=== PATIENT | female | born 1980 | race Caucasian/White ===

== ENCOUNTER 2017-12-26 09:36 | Emergency (ER) | payer OTHER ==
[2017-12-26] MEDS: METOCLOPRAMIDE 10 MG INJ IV (10:34)
[2017-12-26] MEDS: SOD CHLORIDE 0.9% 1,000 ML IV (10:34)
[2017-12-26] MEDS: DIPHENHYDRAMINE 50 MG INJ IV (10:34)
[2017-12-26 10:52] LABS: ADD MAN DIFF? NO
[2017-12-26 10:53] LABS: BASOPHILS % 0.2 % (0.0-2.0); EOSINOPHILS # 0.1 10^3/ul (0.0-0.5); EOSINOPHILS % 0.8 % (0.0-7.0); HEMATOCRIT 40.8 % (37.0-47.0); HEMOGLOBIN 12.8 g/dl (12.0-16.0); LYMPHOCYTES # 1.2 10^3/ul (0.8-2.9); LYMPHOCYTES % 10.2 % (15.0-51.0); MEAN CORPUSCULAR HGB CONC 31.4 g/dl (32.0-37.0); MEAN CORPUSCULAR VOLUME 92.5 fl (82.0-101.0); MEAN PLATELET VOLUME 9.9 fl (7.4-10.4); MONOCYTE # 0.7 10^3/ul (0.3-0.9); MONOCYTES % 6.1 % (0.0-11.0); NEUTROPHIL # 9.4 10^3/ul (1.6-7.5); NEUTROPHILS % 82.4 % (39.0-77.0); PLATELET COUNT 277 10^3/UL (140-415); RED BLOOD COUNT 4.41 10^6/ul (4.20-5.40); RED CELL DISTRIBUTION WIDTH 13.8 % (11.5-14.5)
[2017-12-26 10:53] LABS: WHITE BLOOD COUNT 11.5 10^3/ul (4.8-10.8)
[2017-12-26 11:12] LABS: ANION GAP 13 (8-16); BLOOD UREA NITROGEN 7 mg/dl (7-20); CALCIUM 9.4 mg/dl (8.4-10.2); CARBON DIOXIDE 28 mmol/L (21-31); CHLORIDE 104 mmol/L (97-110); CREATININE 0.47 mg/dl (0.44-1.00); GLUCOSE 100 mg/dl (70-220); POTASSIUM 4.2 mmol/L (3.5-5.1); SODIUM 141 mmol/L (135-144)
== END 2017-12-26 15:08 | disposition home or self-care (01) ==
LOC: E/R 09:36
DX: M54.5 Low back pain (principal); G43.009 Migraine without aura, not intractable, without status migrainosus; Z21 Asymptomatic human immunodeficiency virus [HIV] infection status; Z76.5 Malingerer [conscious simulation]; Z85.43 Personal history of malignant neoplasm of ovary
CPT/HCPCS: 36415; 70450; 71045; 80048; 81025; 85025; 96374; 96375; 99285-25

== ENCOUNTER 2018-04-07 23:33 | Emergency (ER) | payer OTHER | END 2018-04-08 02:55 | disposition home or self-care (01) | LOC: FTE 23:33 | DX: R05 Cough (principal); F17.210 Nicotine dependence, cigarettes, uncomplicated; Z21 Asymptomatic human immunodeficiency virus [HIV] infection status | CPT/HCPCS: 99283; Z7502 ==

== ENCOUNTER 2018-05-25 21:29 | Emergency (ER) | payer OTHER ==
[2018-05-26] MEDS: predniSONE 20 MG TAB PO (00:13)
[2018-05-26] MEDS: ALBUTEROL 0.083% (NEB) 2.5 MG/3 ML AMP HHN (00:17)
== END 2018-05-26 01:41 | disposition home or self-care (01) ==
LOC: FTE 21:29
DX: J06.9 Acute upper respiratory infection, unspecified (principal); F17.210 Nicotine dependence, cigarettes, uncomplicated; J45.909 Unspecified asthma, uncomplicated; Z21 Asymptomatic human immunodeficiency virus [HIV] infection status
CPT/HCPCS: 71045; 94664; 99283-25

== ENCOUNTER 2018-06-24 15:14 | Emergency (ER) | payer OTHER ==
[2018-06-24] MEDS: IBUPROFEN 600 MG TAB PO (18:01)
== END 2018-06-24 18:09 | disposition home or self-care (01) ==
LOC: E/R 15:14
DX: M54.5 Low back pain (principal); R40.2142 Coma scale, eyes open, spontaneous, at arrival to emergency department; R40.2362 Coma scale, best motor response, obeys commands, at arrival to emergency department; R40.2252 Coma scale, best verbal response, oriented, at arrival to emergency department; F17.210 Nicotine dependence, cigarettes, uncomplicated; Z21 Asymptomatic human immunodeficiency virus [HIV] infection status
CPT/HCPCS: 72131; 81025; 99284-25